=== PATIENT | female | born 1985 | race Caucasian/White ===

== ENCOUNTER 2020-04-21 02:04 | Outpatient (CLI) | payer OTHER, SELFPAY ==
[2020-04-21 18:39] LABS: SARS-CoV-2 RNA PCR Negative
== END 2020-04-21 02:05 | disposition home or self-care (01) ==
LOC: ANHCOVIDDT 02:04
PROVIDERS: PCP Internal Medicine Infectious Disease; Visit Provider Obstetrics & Gynecology
DX: Z01.812 Encounter for preprocedural laboratory examination (principal); Z11.59 Encounter for screening for other viral diseases
CPT/HCPCS: 87635; C9803; U0003

== ENCOUNTER 2020-04-23 01:53 | Day surgery (SDC) | payer OTHER, SELFPAY ==
[2020-04-19 14:04] VITALS: BMI 34.9
--- NOTE | 2020-04-22 11:46 | P.PNAN_ITS ---
Anes - Initial Pre Proc Eval Procedure: Operation Date: 04/23/20 07:30 Proposed Procedures p Hysteroscopy, Dilation And Curettage, Radha Endometrial Ablation - Leann Honeycutt MD Date/Time: 04/22/20 11:46 Surgeon: Leann Honeycutt MD Pre Op Diagnosis: Menorrhagia Patient Data Age: 34 Gender: F Height: 1.73 m Weight: 104.33 kg Allergies Allergy/AdvReac Type Severity Reaction Status Date / Time No Known Allergies Allergy Verified 04/19/20 13:58 Home Medications Medication Instructions Recorded Confirmed Type cyanocobalamin (vitamin B-12) 1,000 mcg IM WEEKLY 04/19/20 04/19/20 History hydrocodone-acetaminophen [[place]] 1 tablet PO Q4H PRN #10 tablet 04/23/20 Rx ibuprofen 600 mg PO Q6H PRN #60 tablet 04/23/20 Rx Patient hx anesthesia problems: none Family hx anesthesia problems: none PMFSH Past Medical History Medical History Obesity Plantar fasciitis, bilateral Social History Social History Smoking status: Never smoker Alcohol intake: current Drinks per week: 5 Alcohol use details: 3-5 PER WEEK Substance use: never Living arrangements: with family Spiritual care concerns: No Anes - Eval Final PreProcedure Day of Procedure 04/22/20 11:46 Patient weight: obese Heart: regular rate and rhythm Lungs: clear to auscultation and normal air movement Airway: Mallampati scale class II Neurological: alert and oriented Last oral intake: >/= 8 hours ASA classification: II Emergent: no Anesthetic plan: proceed Anesthesia type and monitoring: general GIVS and LMA Informed Consent: The patient's anesthetic plan and its attendant risks and benefits were discussed with the patient/family/POA. Questions were solicited and answers provided to the satisfaction of the patient/family/POA.
--- NOTE | 2020-04-22 17:03 | WPDANESEPP ---
Anes - Eval Pre Procedure Procedure: Operation Date: 04/23/20 07:30 Proposed Procedures p Hysteroscopy, Dilation And Curettage, Radha Endometrial Ablation - Leann Honeycutt MD Date/Time: 04/22/20 17:03 Pre Op Diagnosis: Menorrhagia Patient Data Age: 34 Gender: F Height: 5 ft 8 in Weight: 104.33 kg Allergies Allergy/AdvReac Type Severity Reaction Status Date / Time No Known Allergies Allergy Verified 04/19/20 13:58 Home Medications Medication Instructions Recorded Confirmed Type cyanocobalamin (vitamin B-12) 1,000 mcg IM WEEKLY 04/19/20 04/19/20 History Patient hx anesthesia problems: none Family hx anesthesia problems: none PMFSH Past Medical History Medical History Obesity Plantar fasciitis, bilateral Social History Social History Smoking status: Never smoker Alcohol intake: current Drinks per week: 5 Substance use: never Spiritual care concerns: No Exam Day of Procedure 04/22/20 17:03 Patient weight: normal Neurological: alert and oriented
--- NOTE | 2020-04-22 17:40 | HP_ITS ---
DATE OF SERVICE: 04/23/2020 HISTORY OF PRESENT ILLNESS: The patient is 34 years old, G4, P2-0-2-2, who came for consultation due to heavy periods. Her periods come once a month, last 3-6 days and have gotten very heavy since her tubal ligation. She is changing protection every 1-2 hours and has severe cramping with her periods. Ibuprofen does not help. Naproxen and a heating pad help a little bit. She denies chest pain, shortness of breath, or dizziness and denies history of anemia. MEDICAL HISTORY: Negative. CURRENT MEDICATIONS: None. ALLERGIES: NO KNOWN DRUG ALLERGIES. PAST SURGICAL HISTORY: x2, bilateral tubal ligation with 2nd , D and C x1. OBSTETRIC HISTORY: She had 2 C-sections and 2 miscarriages. GYNECOLOGIC HISTORY: She has had an abnormal Pap. No history of STDs. SOCIAL HISTORY: Negative for tobacco or drug use. She occasionally drinks alcohol. FAMILY HISTORY: Negative for gynecologic malignancy. REVIEW OF SYSTEMS: Negative. PHYSICAL EXAMINATION: VITAL SIGNS: Her weight is 238, blood pressure 109/72. GENERAL: No apparent distress. HEART: Regular rate and rhythm. LUNGS: Clear to auscultation. ABDOMEN: Soft, nontender, nondistended. PELVIC: Uterus normal size, nontender, mobile, smooth. Adnexa nontender with no palpable mass. IMAGING: Pelvic ultrasound shows uterus measuring 8.4 cm in maximum dimension with normal ovaries bilaterally. ASSESSMENT AND PLAN: Menorrhagia. She is already status post tubal ligation and is not regretting that decision. She has no desire to carry any further pregnancies. So once we discussed options including medical therapy, ablation, or hysterectomy, she opted and signed consent for D and C, hysteroscopy and endometrial ablation after the risks, benefits, complications, and alternatives were discussed. D I MT: Maged
[2020-04-23 06:30] VITALS: BP 124/63; PULSE 75; RESP 17; TEMP 37; O2SAT 99
[2020-04-23] MEDS: LACTATED RINGERS 1,000 ML 30 ML IV CONT ×2 (06:55→08:20)
[2020-04-23] MEDS: ACETAMINOPHEN 500 MG TABLET 1000 MG PO (07:00)
--- NOTE | 2020-04-23 07:08 | WPDANESEPPF ---
Anes - Initial Pre Proc Eval Procedure: Operation Date: 04/23/20 07:30 Proposed Procedures p Hysteroscopy, Dilation And Curettage, Radha Endometrial Ablation - Leann Honeycutt MD Date/Time: 04/23/20 07:08 Surgeon: Leann Honeycutt MD Pre Op Diagnosis: Menorrhagia Patient Data Age: 34 Gender: F Height: 5 ft 8 in Weight: 104.33 kg Allergies Allergy/AdvReac Type Severity Reaction Status Date / Time No Known Allergies Allergy Verified 04/19/20 13:58 Home Medications Medication Instructions Recorded Confirmed Type cyanocobalamin (vitamin B-12) 1,000 mcg IM WEEKLY 04/19/20 04/19/20 History Patient hx anesthesia problems: none Family hx anesthesia problems: none PMFSH Past Medical History Medical History Obesity Plantar fasciitis, bilateral Social History Social History Smoking status: Never smoker Alcohol intake: current Drinks per week: 5 Alcohol use details: 3-5 PER WEEK Substance use: never Living arrangements: with family Spiritual care concerns: No Anes - Eval Final PreProcedure Day of Procedure 04/23/20 07:08 Patient weight: obese Heart: regular rate and rhythm Lungs: clear to auscultation Airway: Mallampati scale class II Neurological: alert and oriented Last oral intake: >/= 8 hours ASA classification: II Emergent: no Anesthetic plan: proceed Anesthesia type and monitoring: general GIVS and standard monitoring Informed Consent: The patient's anesthetic plan and its attendant risks and benefits were discussed with the patient/family/POA. Questions were solicited and answers provided to the satisfaction of the patient/family/POA.
--- NOTE | 2020-04-23 07:30 | WPDHPUPDATE1 ---
History and Physical Update Update Date/Time: 04/23/20 07:30 History and Physical has been reviewed, including an updated exam of the patient. There are NO changes in the patient's condition. Risks, benefits, and alternatives have been discussed and questions answered. Patient agrees to proceed with procedure.
--- NOTE | 2020-04-23 07:45 | PM.PROC ---
Procedure Note - Detailed Date of procedure: 04/23/20 Pre-op diagnosis: Menorrhagia Post-op diagnosis: same Procedure performed: D&C, hysteroscopy, Radha ablation Description of procedure: For the procedure, she was taken to the OR where she was sedated and placed in dorsal lithotomy position. A speculum was placed, and the anterior lip of the cervix was grasped with a single tooth tenaculum. The uterus was sounded to 9 cm. The cervix was dilated to allow passage of the hysteroscope, which revealed normal intrauterine anatomy with both tubal ostia identified. A sharp curettage was done and the curettings sent for pathology. The #8 Hegar dilator was used to measure the endocervical canal at 3.5 cm, yielding a cavity length of 5.5 cm. The Radha device was introduced. The cavity assessment passed on the first attempt, and the cycle ran for 2 minutes. The Radha was removed. A second look was taken with the hysteroscope, which revealed an excellent appearing ablation. The tenaculum was removed. The left tenaculum site was bleeding. Pressure was held with a ring forcep until excellent hemostasis was assured. All instruments were removed from the vagina. She tolerated the procedure well. Sponge, lap, and instrument counts were correct X 2, and she was taken to the recovery room in stable condition. Anesthesia: MAC Surgeon: Leann Honeycutt MD Estimated blood loss (mL): 5 Drains: No Packing: No Pathology: yes (endometrial curettings) Complications: No immediate complications Condition: stable Disposition: PACU Findings: normal endometrial cavity, excellent ablation visualized
[2020-04-23] MEDS: KETOROLAC 30 MG/ML VIAL (*BKC) IV PUSH (08:11)
--- NOTE | 2020-04-23 08:12 | SUR.OPER ---
300 ml NS in 250 ml NS out Ebl- 5 ml
[2020-04-23 08:20] VITALS: BP 122/67; PULSE 70; RESP 14; O2SAT 96
[2020-04-23 08:40] VITALS: BP 130/67; PULSE 60; RESP 16; O2SAT 97
[2020-04-23 09:10] VITALS: BP 117/60; PULSE 62; RESP 16; O2SAT 98
--- NOTE | 2020-04-23 09:24 | SUR.PHASEII ---
PT AWAKE AND ALERT. STATES CRAMPING MILD AT 3-4/10. OXYCODONE 5MG GIVEN PO.
[2020-04-23 09:40] VITALS: BP 126/78; PULSE 67; RESP 16
[2020-04-23 10:00] VITALS: BP 131/78; PULSE 67; RESP 16
--- NOTE | 2020-04-23 10:27 | SUR.PHASEII ---
1005; PT AWAKE AND ALERT. STATES CRAMPING MUCH BETTER NOW. STATES SHE IS READY TO GO HOME. MEETS DISCHARGE CRITERIA.
== END 2020-04-23 10:15 | disposition home or self-care (01) ==
PROVIDERS: PCP Internal Medicine Infectious Disease; Visit Provider Obstetrics & Gynecology
PROC: 0U5B8ZZ Destruction of Endometrium, Via Natural or Artificial Opening Endoscopic (ICD-10-PCS; CPT 58563; principal; 2020-04-23 07:30)
DX: N92.0 Excessive and frequent menstruation with regular cycle (principal); E66.9 Obesity, unspecified; Z68.35 Body mass index [BMI] 35.0-35.9, adult
CPT/HCPCS: 58563; 88305; A9270; J1885; J2250; J2405; J2704; J3010; J7030; J7120